=== PATIENT | female | born 1940 | race Caucasian/White ===

== ENCOUNTER → 2021-08-05 | Outpatient (CLI) | payer MEDICARE ==
[~2021-08-05] MED LIST: ATOR10 PO; Aspir 8181 MG PO; Aspirin EC81 MG PO; B Complete1 EACH PO; BUDE6HFA; COMBIVENT RESPIM4 G1 PO; COMBIVENT RESPIM4 GM; COMBIVENT RESPIM4 GM IH; Colace100 MG; DICL75ER PO; HYDR1TAB94 PO; Hydrocodone-Ap1 EA23 PO; LETR2.5 PO; LEVO-T100 MC1 PO; LEVSOD100 PO; LEVSOD50 PO; QUET25 PO; ROSU10TA PO; Ranitidine HCl150 M1; SYMBICORT 160-4.6 GM INH; Symbicort 16010.2 GM; TOCO400 PO
[2021-08-07 12:38] LABS: CORONAVIRUS (COVID19) CSH-NRL Positive (Negative)
== END | disposition home or self-care (01) ==
LOC: LAB SHORT 13:52 → LAB 13:52
PROVIDERS: Physician Assistant Medical
DX: U07.1 COVID-19 (principal)
CPT/HCPCS: U0003

== ENCOUNTER 2024-07-07 11:14 | Emergency (ER) | payer MEDICARE ==
[~2024-07-07] VITALS: Ht 160 cm; Wt 74.8 kg
[2024-07-07 11:43] VITALS: BP 177/160
[2024-07-07 12:15] LABS: BASOPHILS ABSOLUTE AUTO 0.02 K/mm3 (0.00-0.23); BASOPHILS PERCENT AUTO 0 % (0-2); EOSINOPHILS ABSOLUTE AUTO 0.02 K/mm3 (0.00-0.68); EOSINOPHILS PERCENT AUTO 0 % (0-6); Hematocrit 32.7 % (33.0-51.0); IMMATURE GRAN ABSOLUTE AUTO 0.02 K/mm3 (0.00-0.10); IMMATURE GRAN PERCENT AUTO 0 % (0-1); LYMPHOCYTES ABSOLUTE AUTO 0.95 K/mm3 (0.84-5.20); LYMPHOCYTES PERCENT AUTO 12 % (21-46); MONOCYTES PERCENT AUTO 10 % (4-13); Mean Corpuscular HGB 35.3 pg (26.0-34.0); Mean Corpuscular HGB Conc 33.6 g/dL (31.5-36.5); Mean Corpuscular Volume 105 fL (80-100); Mean Platelet Volume 9.3 fL (9.1-12.4); NEUTROPHILS ABSOLUTE AUTO 5.93 K/mm3 (1.96-9.15); NEUTROPHILS PERCENT AUTO 77 % (41-73); Platelet Count 278 K/mm3 (150-400); RDW Coefficient Variation 12.3 % (11.7-14.2); RDW Standard Deviation 47.2 fL (35.1-46.3); Red Blood Cell Count 3.12 M/mm3 (3.80-5.20); White Blood Cell Count 7.74 K/mm3 (4.00-11.30)
[2024-07-07 12:38] LABS: Albumin, Blood 3.5 g/dL (3.4-5.0); Albumin/Globulin Ratio 0.7 (0.8-1.8); Bilirubin, Total 0.5 mg/dL (0.1-1.0); Bun/Creatinine Ratio 17.2 (12.0-20.0); Calcium, Blood 10.5 mg/dL (8.5-10.1); Creatinine, Blood 1.34 mg/dL (0.40-1.00); Globulin, Blood 4.8 g/dL (2.2-4.0); Potassium, Blood 4.1 mmol/L (3.5-5.5); Total Protein, Blood 8.3 g/dL (6.4-8.2)
[2024-07-07] MEDS ORDERED: CEFD300 PO (14:18)
[2024-07-07] MEDS ORDERED: NYSTATIN100000 U13 PO (14:18)
== END 2024-07-07 14:20 | disposition home or self-care (01) ==
LOC: ER 11:14
PROVIDERS: Physician Assistant
DX: K12.2 Cellulitis and abscess of mouth (principal); Z87.891 Personal history of nicotine dependence
CPT/HCPCS: 70487; 80053; 83605; 85025; 99283-25; Q9967

== ENCOUNTER → 2024-07-28 | Outpatient (CLI) | payer MEDICARE ==
[~2024-07-28] MED LIST changes: +CEFD300 PO; +NYSTATIN100000 U13 PO
== END ==
LOC: LAB 17:29 → LAB SHORT 17:29
DX: K12.2 Cellulitis and abscess of mouth (principal)
CPT/HCPCS: 87070; 87075; 87076; 87185; 87205

== ENCOUNTER 2024-12-30 05:55 | Emergency (ER) | payer MEDICARE ==
[~2024-12-30] VITALS: Ht 160 cm; Wt 61.2 kg
[2024-12-30] MEDS ORDERED: HYDROmorphone HCl/Pf 1MG SYR IV ONE ×3 (06:20→10:55)
[2024-12-30 06:43] LABS: BASOPHILS ABSOLUTE AUTO 0.03 K/mm3 (0.00-0.23); BASOPHILS PERCENT AUTO 0 % (0-2); EOSINOPHILS ABSOLUTE AUTO 0.01 K/mm3 (0.00-0.68); EOSINOPHILS PERCENT AUTO 0 % (0-6); Hematocrit 36.2 % (33.0-51.0); Hemoglobin 11.7 g/dL (11.5-16.0); IMMATURE GRAN ABSOLUTE AUTO 0.17 K/mm3 (0.00-0.10); IMMATURE GRAN PERCENT AUTO 1 % (0-1); LYMPHOCYTES ABSOLUTE AUTO 0.45 K/mm3 (0.84-5.20); LYMPHOCYTES PERCENT AUTO 3 % (21-46); MONOCYTES ABSOLUTE AUTO 1.32 K/mm3 (0.16-1.47); MONOCYTES PERCENT AUTO 8 % (4-13); Mean Corpuscular HGB 31.2 pg (26.0-34.0); Mean Corpuscular HGB Conc 32.3 g/dL (31.5-36.5); Mean Corpuscular Volume 97 fL (80-100); Mean Platelet Volume 9.3 fL (9.1-12.4); NEUTROPHILS ABSOLUTE AUTO 13.99 K/mm3 (1.96-9.15); NEUTROPHILS PERCENT AUTO 88 % (41-73); Platelet Count 258 K/mm3 (150-400); RDW Coefficient Variation 15.2 % (11.7-14.2); RDW Standard Deviation 53.7 fL (35.1-46.3); Red Blood Cell Count 3.75 M/mm3 (3.80-5.20); White Blood Cell Count 15.97 K/mm3 (4.00-11.30)
[2024-12-30 07:01] LABS: Albumin/Globulin Ratio 0.7 (0.8-1.8); Bilirubin, Total 1.1 mg/dL (0.1-1.0); Calcium, Blood 9.1 mg/dL (8.5-10.1); Globulin, Blood 4.5 g/dL (2.2-4.0); Potassium, Blood 3.8 mmol/L (3.5-5.5); Total Protein, Blood 7.5 g/dL (6.4-8.2)
[2024-12-30] MEDS ORDERED: FentaNYL 50 MCG Patch TOP ONE (08:25)
[2024-12-30] MEDS ORDERED: Lidocaine 4% 1 Patch TOP ONE (08:25)
[2024-12-30] MEDS ORDERED: Ketorolac Tromethamine 15mg Vial IV ONE (08:30)
[2024-12-30] MEDS ORDERED: HYDROmorphone HCl/Pf 1MG SYR IV PRN (11:10)
[2024-12-30] MEDS ORDERED: FENTANYL1 EAC3 TOP (15:45)
[2024-12-30] MEDS ORDERED: Ativan1 MG (15:47)
[2024-12-30] MEDS ORDERED: IBU800 M1 PO (15:47)
[2024-12-30] MEDS ORDERED: QUETIAPINE FUMA5012 (15:49)
[2024-12-30] MEDS ORDERED: MORP10S (15:49)
[2024-12-30 15:50] VITALS: BP 143/91
[2024-12-30] MEDS ORDERED: HYOSCYAMINE0.125 MG SL (15:50)
== END 2024-12-30 16:48 ==
LOC: ER 05:55
PROVIDERS: Student in an Organized Health Care Education/Training Program
DX: S27.0XXA Traumatic pneumothorax, initial encounter (principal); S22.32XA Fracture of one rib, left side, initial encounter for closed fracture; J43.9 Emphysema, unspecified; E03.9 Hypothyroidism, unspecified; E78.00 Pure hypercholesterolemia, unspecified; J44.9 Chronic obstructive pulmonary disease, unspecified; W01.0XXA Fall on same level from slipping, tripping and stumbling without subsequent striking against object, initial encounter; Z87.891 Personal history of nicotine dependence; Z79.51 Long term (current) use of inhaled steroids; Z79.899 Other long term (current) drug therapy
CPT/HCPCS: 71045; 71250; 80053; 85025; 86850; 86900; 86901; 96374; 96375; 96376; 99285-25; A6590; A9270; J1171; J1885